=== PATIENT | female | born 1985 | race Caucasian/White ===

== ENCOUNTER 2017-09-30 14:57 | Emergency (ER) | payer BC ==
[~2017-09-30] VITALS: Ht 162.6 cm; Wt 53.6 kg
[2017-09-30 15:02] VITALS: TEMP 98.8
[2017-09-30] MEDS ORDERED: ASPIRIN 81M81 MG/TA2 PO (15:14)
[2017-09-30] MEDS ORDERED: PRENATAL (15:15)
[2017-09-30 16:04] LABS: BASO % 0.4 % (0.0-2.0); EOS # 0.1 (0.0-0.7); EOS % 1.9 % (0-4.0); HEMOGLOBIN 12.8 g/dl (12.5-16.0); LYMPH # 1.4 (1.2-3.4); LYMPH % 27.6 % (20.0-51.0); MEAN CELL VOLUME 84 fl (80.0-100.0); MEAN CORPUSCULAR HEMOGLOBIN 28 pg (27.0-31.0); MEAN CORPUSCULAR HGB CONC 34 g/dl (33.0-37.0); MEAN PLATELET VOLUME 9.7 fl (7.4-10.4); MONO # 0.6 (0.1-0.6); MONO % 11.9 % (1.7-9.3); PLATELET COUNT 256 K/mm3 (130-400); RED BLOOD COUNT 4.52 M/mm3 (4.10-5.30); REDCELL DISTRIBUTION WIDTH-CV 12.5 % (11.5-14.5)
[2017-09-30 16:11] LABS: ALBUMIN 4.1 gm/dL (3.5-5.0); BILIRUBIN,TOTAL 0.4 mg/dL (0.0-1.0); CALCIUM 8.6 mg/dL (8.4-10.2); CREATININE, serum 0.71 mg/dL (0.52-1.25); POTASSIUM 3.7 mmol/L (3.4-5.0); TOTAL PROTEIN 7.3 gm/dL (6.4-8.2)
[2017-09-30] MEDS ORDERED: XARELTO15 MG PO (18:19)
[2017-09-30 18:30] VITALS: BP 120/80; PULSE 74
== END 2017-09-30 18:45 | disposition home or self-care (01) ==
LOC: COL.ER 14:57
PROVIDERS: Emergency Medicine
DX: I77.71 Dissection of carotid artery (principal); R51 Headache; Z79.82 Long term (current) use of aspirin; Z88.0 Allergy status to penicillin
CPT/HCPCS: J1200; J1885; J2930; J7030; Q9967

== ENCOUNTER → 2017-10-23 | Outpatient (CLI) | payer BC ==
[~2017-10-23] MED LIST: ASPIRIN 81M81 MG/TA2 PO; PRENATAL; XARELTO15 MG PO
== END ==
LOC: COL.RAD 10:17
DX: I77.71 Dissection of carotid artery (principal); I77.2 Rupture of artery
CPT/HCPCS: Q9967

== ENCOUNTER → 2018-01-25 | Outpatient (CLI) | payer BC | LOC: COL.RAD 11:30 | DX: I65.23 Occlusion and stenosis of bilateral carotid arteries (principal); I77.2 Rupture of artery | CPT/HCPCS: Q9967 ==

== ENCOUNTER 2018-02-11 23:37 | Emergency (ER) | payer BC ==
[~2018-02-11] VITALS: Ht 162.6 cm; Wt 53.6 kg
[2018-02-11 23:44] VITALS: BP 116/53; TEMP 97.4
[2018-02-12 00:19] LABS: BASO % 0.6 % (0.0-2.0); EOS # 0.2 (0.0-0.7); EOS % 3.3 % (0-4.0); GRAN # 3.3 (1.4-6.5); GRAN % 50.1 % (42.2-75.2); HEMOGLOBIN 11.6 g/dl (12.5-16.0); LYMPH # 2.3 (1.2-3.4); LYMPH % 35.2 % (20.0-51.0); MEAN CELL VOLUME 86 fl (80.0-100.0); MEAN CORPUSCULAR HEMOGLOBIN 28 pg (27.0-31.0); MEAN CORPUSCULAR HGB CONC 33 g/dl (33.0-37.0); MEAN PLATELET VOLUME 9.4 fl (7.4-10.4); MONO # 0.7 (0.1-0.6); PLATELET COUNT 312 K/mm3 (130-400); RED BLOOD COUNT 4.13 M/mm3 (4.10-5.30); REDCELL DISTRIBUTION WIDTH-CV 12.4 % (11.5-14.5)
[2018-02-12 00:25] LABS: HEMATOCRIT 35.3 % (37.0-47.0)
[2018-02-12 00:32] LABS: BILIRUBIN,TOTAL 0.2 mg/dL (0.0-1.0); CREATININE, serum 0.64 mg/dL (0.52-1.25); POTASSIUM 3.8 mmol/L (3.4-5.0); TOTAL PROTEIN 6.9 gm/dL (6.4-8.2)
[2018-02-12] MEDS ORDERED: XARELTO20 MG PO (00:47)
[2018-02-12 01:12] VITALS: PULSE 82
== END 2018-02-12 01:12 | disposition home or self-care (01) ==
LOC: COL.ER 23:37
PROVIDERS: Emergency Medicine
DX: N93.8 Other specified abnormal uterine and vaginal bleeding (principal); Z79.82 Long term (current) use of aspirin

== ENCOUNTER 2023-10-07 10:38 | Emergency (ER) | payer BC ==
[~2023-10-07] VITALS: Ht 162.6 cm; Wt 59.1 kg
[~2023-10-07 10:38] MED LIST changes: +XARELTO20 MG PO
[2023-10-07 10:44] VITALS: TEMP 98.4
[2023-10-07] MEDS ORDERED: NS 1,000 ML IV ONE (11:15)
[2023-10-07 11:41] LABS: COLLECTION METHOD CLEAN CATCH
[2023-10-07 11:44] LABS: BASO % 0.6 % (0.0-2.0); EOS # 0.2 K/mm3 (0.0-0.7); EOS % 3.9 % (0.0-4.0); GRAN # 3.1 K/mm3 (1.4-6.5); GRAN % 56.2 % (42.2-75.2); HEMATOCRIT 37.1 % (37.0-47.0); HEMOGLOBIN 12.3 g/dl (12.5-16.0); LYMPH # 1.7 K/mm3 (1.2-3.4); MEAN CELL VOLUME 87 fl (80.0-100.0); MEAN CORPUSCULAR HEMOGLOBIN 29 pg (27-31); MEAN CORPUSCULAR HGB CONC 33 g/dl (33.0-37.0); MEAN PLATELET VOLUME 9.7 fl (7.4-10.4); MONO # 0.4 K/mm3 (0.1-0.6); MONO % 7.9 % (1.7-9.3); PLATELET COUNT 288 K/mm3 (130-400); RED BLOOD COUNT 4.29 M/mm3 (4.10-5.30); REDCELL DISTRIBUTION WIDTH-CV 12.7 % (11.5-14.5)
[2023-10-07 11:51] LABS: PH 7.5 (5.0-8.5); URINE APPEARANCE CLOUDY (CLEAR/HAZY); URINE BLOOD NEGATIVE (NEGATIVE); URINE COLOR YELLOW (YELLOW); URINE GLUCOSE NEGATIVE (NEGATIVE); URINE KETONE NEGATIVE (NEGATIVE); URINE NITRATE NEGATIVE (NEGATIVE); URINE PROTEIN(semi-quant) NEGATIVE (NEGATIVE); URINE UROBILINOGEN 0.2 E.U/dL (0.2-1.0)
[2023-10-07 12:08] LABS: ALBUMIN 3.9 g/dL (3.5-5.0); BILIRUBIN,TOTAL 0.4 mg/dL (0.2-1.2); CALCIUM 9.2 mg/dL (8.4-10.2); CREATININE, serum 0.72 mg/dL (0.57-1.11); POTASSIUM 4.2 mEq/L (3.5-4.5); TOTAL PROTEIN 6.7 g/dl (6.2-8.1)
[2023-10-07 12:55] VITALS: BP 100/69; PULSE 74
== END 2023-10-07 12:55 | disposition home or self-care (01) ==
LOC: COL.ER 10:38
PROVIDERS: Nurse Practitioner
DX: R42 Dizziness and giddiness (principal)
CPT/HCPCS: J7030